=== PATIENT | female | born 2000 | race Caucasian/White ===

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

== ENCOUNTER 2019-02-16 09:19 | Outpatient (CLI) | payer OTHER ==
[2019-02-16 09:45] LABS: BASOPHILS % 0.4 % (0.0-1.5); EOSINOPHILS % 5.9 % (0.0-6.8); MEAN CORPUSCULAR HEMOGLOBIN 30.1 pg (28.0-34.0); MONOCYTES % 5.9 % (0.0-11.0); NEUTROPHILS # 3.1 # k/uL (1.4-7.7)
== END 2019-02-16 09:21 ==
LOC: LAB 09:19
PROVIDERS: ATTEND Family Medicine
DX: R53.83 Other fatigue (principal)
CPT/HCPCS: 36415; 80053; 84439; 84443; 84481; 85025